=== PATIENT | male | born 1960 | race Caucasian/White ===

== ENCOUNTER 2018-08-02 17:23 | Outpatient (REF) | payer BC, SELFPAY ==
[2018-08-02 19:12] LABS: HCT 48.4 % (40.0-50.0); HGB 16.5 g/dL (13.5-17.5); Mean Corp. HGB Concentration 34.1 g/dL (32.0-36.0); Mean Corpuscular Hemoglobin 29.2 pg (27.0-33.0); Mean Corpuscular Volume 85.5 fL (80-95); Mean Platelet Volume 10.6 fL (8.0-11.0); Platelet Count 184 x1000/uL (130-400); RBC 5.66 m/cumm (4.50-6.00); RBC Distribution Width 12.8 % (11.8-14.1); White Blood Cell Count 6.05 k/cumm (4.4-10.8)
[2018-08-02 19:40] LABS: ALT 58 U/L (12-78); AST 34 U/L (15-37); Albumin 3.9 g/dL (3.4-5.0); Alkaline Phosphatase 108 U/L (46-116); Anion Gap 7.3 mmol/L (3-11); BUN 17 mg/dL (7-18); Bilirubin, Total 1.4 mg/dL (0.2-1.0); CO2 32.7 mmol/L (21.0-32.0); CREATININE 1.11 mg/dL (0.70-1.30); Calcium 9.1 mg/dL (8.5-10.1); Chloride 101 mmol/L (98-107); Glucose 84 mg/dL (70-100); Sodium 141 mmol/L (136-145); TSH 3.43 uIU/mL (0.358-3.74); Total Protein 7.4 g/dL (6.4-8.2)
== END 2018-08-02 17:43 ==
LOC: NCHCN 17:23
PROVIDERS: PCP Internal Medicine; Visit Provider Physician Assistant Medical
DX: I48.1 Persistent atrial fibrillation (principal)
CPT/HCPCS: 80053; 85027; 84443

== ENCOUNTER 2020-08-06 18:37 | Outpatient (REF) | payer BC, SELFPAY ==
[2020-08-06 15:37] LABS: ALT 57 U/L (16-63); AST 37 U/L (15-37); Albumin 4.2 g/dL (3.4-5.0); Alkaline Phosphatase 89 U/L (46-116); Anion Gap 10.3 mmol/L (3-11); BUN 21 mg/dL (7-18); Bilirubin, Total 2.5 mg/dL (0.2-1.0); CO2 26.7 mmol/L (21.0-32.0); CREATININE 1.13 mg/dL (0.70-1.30); Calcium 9.3 mg/dL (8.5-10.1); Calculated LDL 111 mg/dL (<100); Chloride 101 mmol/L (98-107); Cholesterol 175 mg/dL (<200); Glucose 90 mg/dL (74-106); HDL Cholesterol 50 mg/dL (40-60); Potassium 3.9 mmol/L (3.5-5.1); Sodium 138 mmol/L (136-145); Total Protein 7.4 g/dL (6.4-8.2); Triglyceride 71 mg/dL (<150)
[2020-08-06 15:58] LABS: Uric Acid 5.3 mg/dL (3.5-7.2)
== END 2020-08-06 18:57 ==
LOC: NCHCN 18:37
PROVIDERS: PCP Internal Medicine; Visit Provider Internal Medicine
DX: Z00.00 Encounter for general adult medical examination without abnormal findings (principal); E78.5 Hyperlipidemia, unspecified; I10 Essential (primary) hypertension; M10.9 Gout, unspecified
CPT/HCPCS: 80053; 80061; 84550

== ENCOUNTER 2020-10-08 14:48 | Outpatient (REF) | payer BC, SELFPAY ==
[2020-10-08 16:15] LABS: ALT 65 U/L (16-63); AST 41 U/L (15-37); Alkaline Phosphatase 99 U/L (46-116); Bilirubin, Direct 0.3 mg/dL (0.0-0.2); Bilirubin, Total 2.2 mg/dL (0.2-1.0); Total Protein 7.3 g/dL (6.4-8.2)
[2020-10-08 16:27] LABS: GGT 33 U/L (15-85)
[2020-10-09 15:16] LABS: Ferritin 122 ng/mL (26-388)
== END 2020-10-08 14:49 | disposition home or self-care (01) ==
LOC: NCHCN 14:48
PROVIDERS: PCP Internal Medicine; Visit Provider Internal Medicine
DX: E80.6 Other disorders of bilirubin metabolism (principal); E78.5 Hyperlipidemia, unspecified
CPT/HCPCS: 80076; 82728; 82977

== ENCOUNTER 2022-03-11 14:40 | Outpatient (REF) | payer BC, SELFPAY ==
[2022-03-11 20:03] LABS: HCT 45.4 % (40.0-50.0); HGB 15.7 g/dL (13.5-17.5); MCH 29.2 pg (27.0-33.0); MCHC 34.6 % (32.0-36.0); MCV 85 fL (80-95); MPV 10.3 fL (8.0-11.0); Platelet Count 216 10^3/uL (130-400); RBC 5.37 10^6/uL (4.36-5.78); RDW 12.5 % (11.8-14.1); RDW-SD 37.8 fL; WBC 6.63 10^3/uL (4.4-10.8)
[2022-03-11 20:26] LABS: Anion Gap 8.6 mmol/L (3-11); BUN 23 mg/dL (7-18); CO2 30.4 mmol/L (21.0-32.0); CREATININE 1.1 mg/dL (0.70-1.30); Calcium 8.8 mg/dL (8.5-10.1); Calculated LDL 67 mg/dL (<100); Chloride 101 mmol/L (98-107); Cholesterol 137 mg/dL (<200); Glucose 85 mg/dL (74-106); HDL Cholesterol 47 mg/dL (40-60); Potassium 3.1 mmol/L (3.5-5.1); Sodium 140 mmol/L (136-145); Triglyceride 115 mg/dL (<150)
== END 2022-03-11 14:41 | disposition home or self-care (01) ==
LOC: NCHCN 14:40
PROVIDERS: PCP Internal Medicine; Visit Provider Internal Medicine
DX: I10 Essential (primary) hypertension (principal); M10.9 Gout, unspecified; I51.7 Cardiomegaly
CPT/HCPCS: 80048; 80061; 85027

== ENCOUNTER 2022-05-05 18:02 | Outpatient (REF) | payer BC, SELFPAY ==
[2022-05-05 20:25] LABS: Anion Gap 6.6 mmol/L (3-11); BUN 25 mg/dL (7-18); CO2 30.4 mmol/L (21.0-32.0); CREATININE 1.1 mg/dL (0.70-1.30); Calcium 9.2 mg/dL (8.5-10.1); Chloride 102 mmol/L (98-107); Estimated GFR 76.37 (mL/min/1.73m2); Glucose 89 mg/dL (74-106); Sodium 139 mmol/L (136-145)
== END 2022-05-05 18:03 | disposition home or self-care (01) ==
LOC: NCHCN 18:02
PROVIDERS: PCP Internal Medicine; Visit Provider Internal Medicine
DX: E87.6 Hypokalemia (principal)
CPT/HCPCS: 80048

== ENCOUNTER 2022-10-01 17:38 | Outpatient (REF) | payer BC, SELFPAY ==
[2022-10-01 20:03] LABS: HCT 47.5 % (40.0-50.0); HGB 16.5 g/dL (13.5-17.5); MCH 28.9 pg (27.0-33.0); MCHC 34.7 % (32.0-36.0); MCV 83 fL (80-95); MPV 11.4 fL (8.0-11.0); Platelet Count 155 10^3/uL (130-400); RBC 5.71 10^6/uL (4.36-5.78); RDW 12.7 % (11.8-14.1); WBC 5.26 10^3/uL (4.4-10.8)
[2022-10-01 20:17] LABS: ALT 63 U/L (16-63); Anion Gap 8.5 mmol/L (3-11); BUN 23 mg/dL (7-18); CO2 30.5 mmol/L (21.0-32.0); COMMENT (LAB VIEW ONLY) 98.61 mg/dL; CREATININE 1.1 mg/dL (0.70-1.30); Calcium 9.6 mg/dL (8.5-10.1); Chloride 103 mmol/L (98-107); Creatine Kinase 169 U/L (39-308); Estimated GFR 76.37 (mL/min/1.73m2); Glucose 89 mg/dL (74-106); Microalb ug/mg Crea 8.2 ug/mg Cr; Potassium 3.7 mmol/L (3.5-5.1); Sodium 142 mmol/L (136-145); Uric Acid 7.1 mg/dL (3.5-7.2)
[2022-10-01 20:49] LABS: Calculated LDL 73 mg/dL (<100); Cholesterol 136 mg/dL (<200); HDL Cholesterol 53 mg/dL (40-60); Triglyceride 52 mg/dL (<150)
== END 2022-10-01 17:39 | disposition home or self-care (01) ==
LOC: NCHCN 17:38
PROVIDERS: PCP Internal Medicine; Visit Provider Internal Medicine
DX: I10 Essential (primary) hypertension (principal); E78.5 Hyperlipidemia, unspecified; M10.9 Gout, unspecified; I48.91 Unspecified atrial fibrillation; Z12.5 Encounter for screening for malignant neoplasm of prostate; R30.0 Dysuria
CPT/HCPCS: 80048; 80061; 82550; 84153; 85027; 82043; 82570; 84460; 84550

== ENCOUNTER 2024-02-02 11:53 | Outpatient (REF) | payer BC, SELFPAY ==
[2024-02-02 19:08] LABS: HCT 48.1 % (40.0-50.0); HGB 16.4 g/dL (13.5-17.5); MCH 29.2 pg (27.0-33.0); MCHC 34.1 % (32.0-36.0); MCV 86 fL (80-95); MPV 10.4 fL (8.0-11.0); Platelet Count 178 10^3/uL (130-400); RBC 5.62 10^6/uL (4.36-5.78); RDW 12.7 % (11.8-14.1); RDW-SD 39.1 fL; WBC 5.71 10^3/uL (4.4-10.8)
[2024-02-02 19:27] LABS: ALT 53 U/L (16-63); AST 40 U/L (15-37); Alkaline Phosphatase 98 U/L (46-116); Anion Gap 6.6 mmol/L (3-11); BUN 22 mg/dL (7-18); Bilirubin, Total 2.26 mg/dL (0.2-1.0); CO2 31.4 mmol/L (21.0-32.0); Calcium 9.6 mg/dL (8.5-10.1); Chloride 104 mmol/L (98-107); Estimated GFR 84.57 (mL/min/1.73m2); Glucose 100 mg/dL (74-106); Potassium 4.7 mmol/L (3.5-5.1); Sodium 142 mmol/L (136-145); Total Protein 7.7 g/dL (6.4-8.2); Uric Acid 7.4 mg/dL (3.5-7.2)
[2024-02-02 19:44] LABS: Calculated LDL 79 mg/dL (<100); Cholesterol 144 mg/dL (<200); HDL Cholesterol 50 mg/dL (40-60); Triglyceride 78 mg/dL (<150)
== END 2024-02-02 11:54 | disposition home or self-care (01) ==
LOC: NCHCN 11:53
PROVIDERS: PCP Internal Medicine; Visit Provider Internal Medicine
DX: I48.91 Unspecified atrial fibrillation (principal); M10.9 Gout, unspecified; I10 Essential (primary) hypertension; R97.20 Elevated prostate specific antigen [PSA]
CPT/HCPCS: 80053; 80061; 85027; 84153; 84550

== ENCOUNTER 2024-06-02 08:53 | Outpatient (REF) | payer BC, SELFPAY ==
[2024-06-02 19:08] LABS: CREATININE 1.3 mg/dL (0.70-1.30); Estimated GFR 61.73 (mL/min/1.73m2)
== END 2024-06-02 08:54 | disposition home or self-care (01) ==
LOC: LBN 08:53
PROVIDERS: PCP Internal Medicine; Visit Provider Internal Medicine Interventional Cardiology
DX: I48.91 Unspecified atrial fibrillation (principal)
CPT/HCPCS: 82565

== ENCOUNTER 2024-12-21 12:49 | Outpatient (REF) | payer BC, SELFPAY ==
[2024-12-21 21:44] LABS: HCT 47.9 % (40.0-50.0); HGB 16.7 g/dL (13.5-17.5); MCH 29.5 pg (27.0-33.0); MCHC 34.9 % (32.0-36.0); MCV 85 fL (80-95); MPV 10.4 fL (8.0-11.0); Platelet Count 190 10^3/uL (130-400); RBC 5.66 10^6/uL (4.36-5.78); RDW 12.6 % (11.8-14.1); RDW-SD 38.5 fL; WBC 5.25 10^3/uL (4.4-10.8)
[2024-12-21 22:19] LABS: ALT 49 U/L (16-63); AST 47 U/L (15-37); Albumin 4.1 g/dL (3.4-5.0); Alkaline Phosphatase 100 U/L (46-116); Anion Gap 8.2 mmol/L (3-11); BUN 25 mg/dL (7-18); Bilirubin, Total 2.3 mg/dL (0.2-1.0); CO2 29.8 mmol/L (21.0-32.0); CREATININE 1.1 mg/dL (0.70-1.30); Calcium 9.7 mg/dL (8.5-10.1); Chloride 103 mmol/L (98-107); Creatine Kinase 234 U/L (39-308); Estimated GFR 75.43 (mL/min/1.73m2); Glucose 94 mg/dL (74-106); Potassium 3.7 mmol/L (3.5-5.1); Sodium 141 mmol/L (136-145); Total Protein 7.7 g/dL (6.4-8.2); Uric Acid 7.5 mg/dL (3.5-7.2)
[2024-12-21 22:31] LABS: Calculated LDL 135 mg/dL (<100); Cholesterol 197 mg/dL (<200); HDL Cholesterol 48 mg/dL (>or=40); Triglyceride 74 mg/dL (<150)
[2024-12-22 19:06] LABS: PSA, Screening 8.9 ng/mL (<=4.5)
== END 2024-12-21 12:50 | disposition home or self-care (01) ==
LOC: NCHCN 12:49
PROVIDERS: PCP Internal Medicine; Visit Provider Internal Medicine
DX: J30.9 Allergic rhinitis, unspecified (principal); E78.5 Hyperlipidemia, unspecified; Z12.5 Encounter for screening for malignant neoplasm of prostate; M10.9 Gout, unspecified
CPT/HCPCS: 80053; 80061; 82550; 84153; 85027; 84550

== ENCOUNTER 2025-02-23 08:48 | Outpatient (REF) | payer BC, SELFPAY ==
[2025-02-24 17:30] LABS: PSA, Diagnostic 7.2 ng/mL (<=4.5)
== END 2025-02-23 08:49 | disposition home or self-care (01) ==
LOC: NCHCN 08:48
PROVIDERS: PCP Internal Medicine; Visit Provider Internal Medicine
DX: R97.20 Elevated prostate specific antigen [PSA] (principal)
CPT/HCPCS: 84153